=== PATIENT | male | born 1990 | race Caucasian/White ===

== ENCOUNTER 2018-02-10 10:06 | Day surgery (SDC) | payer BC ==
[~2018-02-10] VITALS: Ht 185.4 cm; Wt 93.3 kg
[~2018-02-10 10:06] MED LIST: CRUTCH4 USE
== END 2018-02-10 14:22 | disposition home or self-care (01) ==
LOC: ORSCSDS 10:06
PROVIDERS: Orthopaedic Surgery
PROC: 0SBD4ZZ Excision of Left Knee Joint, Percutaneous Endoscopic Approach (ICD-10-PCS; principal; 2018-02-10 10:15)
PROC: 0SCD4ZZ Extirpation of Matter from Left Knee Joint, Percutaneous Endoscopic Approach (ICD-10-PCS; principal; 2018-02-10 10:15)
DX: S83.282A Other tear of lateral meniscus, current injury, left knee, initial encounter (principal)
CPT/HCPCS: J0690; J1100; J2250; J2405; J3010; J7120

== ENCOUNTER 2024-09-26 22:28 | Emergency (ER) | payer OTHER ==
[~2024-09-26] VITALS: Ht 172.7 cm; Wt 74.8 kg
[2024-09-26] MEDS ORDERED: Morphine Sulfate 4 MG/1 ML Injection IM ONE (23:35)
[2024-09-27] MEDS ORDERED: IBUP600 PO (01:20)
[2024-09-27] MEDS ORDERED: ACET500 PO (01:20)
[2024-09-27] MEDS ORDERED: OXYACE7.5T PO (01:20)
[2024-09-27] MEDS ORDERED: Amoxicillin/Clavulanate K 875 MG Tab PO ONE (01:20)
[2024-09-27] MEDS ORDERED: AMOCLA875 PO (01:20)
[2024-09-27 01:30] VITALS: BP 134/80
[2024-09-27] MEDS ORDERED: RX Prepack 6 Tabs Oxycodone 5mg UD ONE (01:35)
== END 2024-09-27 01:44 | disposition home or self-care (01) ==
LOC: ER 22:28
DX: S02.2XXA Fracture of nasal bones, initial encounter for closed fracture (principal); S02.32XA Fracture of orbital floor, left side, initial encounter for closed fracture; S80.212A Abrasion, left knee, initial encounter; S80.211A Abrasion, right knee, initial encounter; M79.672 Pain in left foot; Y04.0XXA Assault by unarmed brawl or fight, initial encounter
CPT/HCPCS: 70486; 73610; 73630; 96372; 99284-25; A9270; J2270